=== PATIENT | female | born 1960 | race Caucasian/White ===

== ENCOUNTER → 2016-07-16 | Day surgery (SDC) | payer OTHER ==
[~2016-07-16] MED LIST: CHLORTHALIDONE25 MG PO; CINNAMON ALPHA1 EACH PO; HYOSCYAMINE0.375 M4 PO; LEVOFLOXACIN500 MG PO; LISINOPRIL20 MG PO; LORCET PLUS TAB1 TA1 PO; LOSARTAN-HCTZ1 EAC1 PO; TURMERIC500 MG PO; VITAMIN D32000 UNIT PO; ZANAFLEX4 M1 PO; ZYRTEC10 M2 PO
--- NOTE | ~2016-07-16 | OR ---
Unit #: [id number] #: [id number] Patient: SARAVANAN ROBERTS [id number] [address] [address] [id number] MR#: [id number] NAME: SARAVANAN ROBERTS ROOM: Date of Procedure: 07/16/2016 Admission Date: 07/16/2016 Surgeon: Jacky Thomason M.D. : 1960 Attending Physician: Jacky Thomason M.D. Primary Care Physician: Asya Wise M.D. OPERATIVE REPORT JOB NOTE: CC: PRIMARY CARE PHYSICIAN PROCEDURE PERFORMED Colonoscopy to cecum. INDICATIONS FOR PROCEDURE Average risk for colorectal cancer. MEDICATIONS Monitored anesthesia. POSTOPERATIVE FINDINGS 1. Diverticulosis. 2. Internal hemorrhoids. 3. Good prep. PLAN Repeat colonoscopy in 10 years. DESCRIPTION OF PROCEDURE The patient was explained of the procedure, risks, and benefits along with the risks and benefits of anesthesia. She was brought to the endoscopy room. Propofol anesthesia was given. Rectal exam was done, which was normal. Colonoscope was lubricated, passed up the rectum, advanced under direct vision all the way to the cecum. Cecum was identified by ileocecal valve and appendiceal orifice. I then started to pull the scope out carefully looking. No polyps, masses, or colitis was seen. Diverticulosis noted. I retroflexed in the rectum, internal hemorrhoids seen. Scope was gently pulled out. She tolerated it well. Dictated by... Bobbi Grant/lashaun TD: 07/16/2016 22:01 JOB #: [id number] Unit #: [id number] #: [id number] Patient: SARAVANAN ROBERTS OPERATIVE REPORT X Jacky Thomason MD X PROCEDURE OPERATIVE NOTE
== END | disposition home or self-care (01) ==
LOC: COPS 06:42
DX: Z12.11 Encounter for screening for malignant neoplasm of colon (principal); K57.30 Diverticulosis of large intestine without perforation or abscess without bleeding; K64.8 Other hemorrhoids; J45.909 Unspecified asthma, uncomplicated; I10 Essential (primary) hypertension; F17.210 Nicotine dependence, cigarettes, uncomplicated; Z90.49 Acquired absence of other specified parts of digestive tract; Z98.818 Other dental procedure status; Z88.0 Allergy status to penicillin; Z79.899 Other long term (current) drug therapy; Z96.653 Presence of artificial knee joint, bilateral
CPT/HCPCS: J2250